=== PATIENT | male | born 2005 | race Caucasian/White ===

== ENCOUNTER 2025-08-11 14:55 | Emergency (ER) | payer OTHER, SELFPAY ==
[2025-08-11 15:07] VITALS: BP 138/88; PULSE 87; RESP 16; TEMP 36.8; O2SAT 98; BMI 29.8
--- NOTE | 2025-08-11 15:35 | ED.SKABFB ---
HPI - Skin/Abscess/Foreign Bdy <Janette Ramirez PA-C - Last Filed: 08/11/25 16:24> General Chief complaint: Skin/Abscess/Foreign Body Stated complaint: hives? rash? all over body Time Seen by Provider: 08/11/25 14:57 Source: patient Mode of arrival: Ambulatory Limitations: no limitations History of Present Illness HPI narrative: Markus Elliott is a pleasant 20-year-old male with no reported past medical history, active duty [employer], who presents to the emergency department for a rash x 2-3 weeks. Patient states his symptoms started shortly after going on a boat detachment for the [employer]. The rash started as a red scaly patch on his neck and has since started to spread to the remainder of the neck, the trunk, the arms, and now the legs. He does not take any prescription medications, no new medication or medication changes. He denies any fevers, chills, flu-like symptoms. No blisters or vesicles. No drainage. No mucous membrane lesions, no palmar sole lesions. No dysuria. Denies history of any skin conditions, denies any new products however he was sleeping on the bow therefore with new detergent. No other both meets have the same rash. He has tried Benadryl without relief. He is tried hydroxyzine and topical hydrocortisone for 3 days with very minimal relief. Related Data Allergies Allergy/AdvReac Type Severity Reaction Status Date / Time No Known Drug Allergies Allergy Verified 08/11/25 15:07 Review of Systems <Janette Ramirez PA-C - Last Filed: 08/11/25 16:24> Review of Systems ROS Unobtainable: All systems reviewed & are unremarkable except as noted in HPI and below Patient History <Janette Ramirez PA-C - Last Filed: 08/11/25 16:24> Social History Smoking Status: Current every day smoker Smoking Status: Current every day smoker tobacco type: vaping Exam <Janette Ramirez PA-C - Last Filed: 08/11/25 16:24> Narrative Exam Narrative: GENERAL: 20 year old patient appears stated age. Well-developed patient, in no acute distress. HEAD: Atraumatic. Normocephalic. EYES: PERRL. Extraocular motions intact. No scleral icterus. No injection or drainage. ENT: Nose without bleeding, purulent drainage. Throat without erythema, tonsillar hypertrophy or exudate. No oropharyngeal lesions. Airway patent. NECK: Trachea midline. Cervical ROM intact. CARDIOVASCULAR: Regular rate and rhythm. RESPIRATORY: ?Nonlabored respirations. ?Speaking in clear, full sentences. ?Clear to auscultation. Breath sounds equal bilaterally. No wheezes, rales, or rhonchi. ? GASTROINTESTINAL: Abdomen soft, non-tender, nondistended. EXTREMITIES: No edema or joint tenderness, UE or LE. BACK: Nontender without deformity or crepitance. No flank tenderness. NEURO: AOx3. ?Clear speech. ?Moves all 4 extremities appropriately. SKIN: Patient has a diffuse maculopapular rash. The rash begins on the anterior neck, where there is 1 singular large, about 4 cm erythematous, scaly lesion. The rash then spreads inferiorly onto the trunk, the upper arms, with very few scattered small erythematous papules on the legs. There are a few on the back as well. All of the lesions are erythematous, minimally scaly, and blanchable. There are no vesicles, blisters, bullae, petechiae, purpura. Negative Nikolsky sign. No lesions on the mucous membranes, palms or soles. Initial Vital Signs Initial Vital Signs: Vital Signs Temperature 98.2 F 08/11/25 15:07 Pulse Rate 87 08/11/25 15:07 Respiratory Rate 16 08/11/25 15:07 Blood Pressure 138/88 08/11/25 15:07 Pulse Oximetry 98 08/11/25 15:07 Oxygen Delivery Method Room Air 08/11/25 15:07 <Cindy Pelletier DO - Last Filed: 08/13/25 08:14> Initial Vital Signs Initial Vital Signs: Vital Signs Temperature 98.2 F 08/11/25 15:07 Pulse Rate 87 08/11/25 15:07 Respiratory Rate 16 08/11/25 15:07 Blood Pressure 138/88 08/11/25 15:07 Pulse Oximetry 98 08/11/25 15:07 Oxygen Delivery Method Room Air 08/11/25 15:07 Course <Janette Ramirez PA-C - Last Filed: 10/15/25 16:24> Vital Signs Vital signs: Vital Signs - 8 hr 08/11/25 15:07 08/11/25 16:20 Temperature 98.2 F Pulse Rate 87 86 Respiratory Rate 16 16 Blood Pressure 138/88 135/88 Pulse Oximetry 98 99 Oxygen Delivery Method Room Air Room Air <Cindy DO Liyah - Last Filed: 08/13/25 08:14> Vital Signs Vital signs: Vital Signs - 8 hr 08/11/25 15:07 08/11/25 16:20 Temperature 98.2 F Pulse Rate 87 86 Respiratory Rate 16 16 Blood Pressure 138/88 135/88 Pulse Oximetry 98 99 Oxygen Delivery Method Room Air Room Air MDM - Skin/Abscess/Foreign Bdy <Janette Ramirez PA-C - Last Filed: 08/11/25 16:24> Medical Records Medical records narrative: None available for review MDM Narrative Medical decision making narrative: 20-year-old male with no reported past medical history, active duty [employer], who presents to the emergency department for a rash x 2-3 weeks. Patient states his symptoms started shortly after going on a boat detachment [place] [employer]. No one else on the boat has the rash. Differential diagnosis includes but is not limited to pityriasis rosea, atopic dermatitis, psoriasis, heat rash, tinea, folliculitis, etc. On exam the patient is in no acute distress, nontoxic-appearing, all vital signs within normal limits. Has a maculopapular rash that begins on the anterior neck with 1 large patch, and then spreads inferiorly. No blisters, bullae, vesicles, petechiae, purpuric, mucous membrane lesions, palm or sole lesions. He feels well and the rash is minimally itchy. No prescription medications, no new medications, no dietary changes, no other coworkers have the same rash. This rash is most consistent with pityriasis rosea with herald patch starting on his neck. Recommended at this time that patient follow up with the [facility], dermatology, continue applying hydrocortisone cream topically b.i.d. to help with symptoms, and also suggested using Nizoral/ketoconazole body wash. Discussed strict ER return precautions for the development of any new or worsening symptoms, fevers, systemic symptoms, mucous membrane lesions, blisters or other concerns. Patient verbalized understanding of all information is agreeable with the plan, he is ambulatory and stable for discharge home. Discharge Plan Departure Patient Disposition: Home Clinical Impression: Rash Instructions: DI for Pityriasis Rosea Activity Restrictions/Additional Instructions: Dear Mr. Elliott, Thank you for coming to the emergency department. Today you were evaluated for a rash. At this time your rash is most clinically consistent with pityriasis rosea. This is a self-limiting rash however it can take many weeks to go away. I would like you to follow up with [facility] and I encouraged that you follow up with a owner professional engineer for further management. As we discussed, please apply hydrocortisone cream topically to the rash twice a day for the next 2 weeks. You may also use ketoconazole/Nizoral body wash every other day as we discussed. Please rest, hydrate, return to the ER with any new or worsening symptoms. Please follow up with your primary care doctor within the next 2-3 days for ER follow-up. (If you do not have a PCP you can call [phone]. ?to schedule an appointment with an [facility] Primary Care Provider) IF YOU DEVELOP ANY NEW OR WORSENING SYMPTOMS, RETURN TO THE ER! Please read the attached instructions, they highlight more specific treatments and interventions for you at home. Thank you for letting me participate in your care, Janette Ramirez PA-C Referrals: Provider,Luis GASTON [Primary Care Provider, Family Practice] Stand Alone Forms: Patient Portal/API ED Sign-out <Cindy Pelletier, - Last Filed: 08/13/25 08:14> Cosign ED Attending Veronica Attestation: I was available for consultation.
[2025-08-11 16:20] VITALS: BP 135/88; PULSE 86; RESP 16; O2SAT 99
== END 2025-08-11 16:05 | disposition home or self-care (01) ==
PROVIDERS: Emergency Provider Physician Assistant
DX: R21 Rash and other nonspecific skin eruption (principal)
CPT/HCPCS: 99281